=== PATIENT | female | born 1985 | race Caucasian/White ===

== ENCOUNTER 2017-09-18 09:04 | Emergency (ER) | payer MEDICAID ==
[2017-09-18] MEDS: ACETAMINOPHEN 500 MG TAB PO (09:29)
== END 2017-09-18 09:42 | disposition home or self-care (01) ==
LOC: FTE 09:04
DX: M54.5 Low back pain (principal); J45.909 Unspecified asthma, uncomplicated
CPT/HCPCS: 99283; Z7502

== ENCOUNTER 2018-04-30 21:06 | Inpatient (IN) | payer MEDICAID ==
[2018-04-30] MEDS ORDERED: LACTATED RINGER'S 1,000 ML IV (23:24)
[2018-04-30] MEDS ORDERED: OXYTOCIN 30 UNITS/LR 500 ML IV ×2 (23:30)
[2018-04-30] MEDS ORDERED: BUTORPHANOL 2 MG INJ IV (23:30)
[2018-04-30] MEDS ORDERED: CARBOPROST 250 MCG INJ IM (23:30)
[2018-04-30] MEDS ORDERED: IBUPROFEN 600 MG TAB PO (23:30)
[2018-04-30] MEDS ORDERED: MISOPROSTOL 200 MCG TAB PR (23:30)
[2018-04-30] MEDS ORDERED: LIDOCAINE 1% (MPF) 30 ML INJ INJ (23:30)
[2018-04-30] MEDS ORDERED: METHYLERGONOVINE 0.2 MG INJ IM (23:30)
[2018-05-01] MEDS ORDERED: MAGNESIUM SULFATE 20 GM/500 ML 500 ML IV (01:38)
[2018-05-01] MEDS ORDERED: BETAMET NA PHOS/AC(6 MG/ML) 2 ML INJ SYG IM (02:00)
[2018-05-01] MEDS ORDERED: MAGNESIUM SULFATE 4 GM/100 ML 100 ML IV (02:00)
[2018-05-01] MEDS: AMPICILLIN 2 GM/NS (PMX) 100 ML IV (02:12)
[2018-05-01] MEDS: LACTATED RINGER'S 1,000 ML IV ×3 (02:20→10:59)
[2018-05-01 02:45] LABS: ADD MAN DIFF? NO
[2018-05-01 03:00] LABS: WHITE BLOOD COUNT 11.2 10^3/ul (4.8-10.8)
[2018-05-01 03:00] LABS: BASOPHILS % 0.2 % (0.0-2.0); EOSINOPHILS # 0.2 10^3/ul (0.0-0.5); EOSINOPHILS % 1.3 % (0.0-7.0); HEMATOCRIT 31.8 % (37.0-47.0); HEMOGLOBIN 10.4 g/dl (12.0-16.0); LYMPHOCYTES # 2.4 10^3/ul (0.8-2.9); LYMPHOCYTES % 21.2 % (15.0-51.0); MEAN CORPUSCULAR HEMOGLOBIN 27.3 pg (29.0-33.0); MEAN CORPUSCULAR HGB CONC 32.7 g/dl (32.0-37.0); MEAN CORPUSCULAR VOLUME 83.5 fl (82.0-101.0); MEAN PLATELET VOLUME 11.8 fl (7.4-10.4); MONOCYTES % 8.7 % (0.0-11.0); NEUTROPHIL # 7.6 10^3/ul (1.6-7.5); NEUTROPHILS % 68.2 % (39.0-77.0); PLATELET COUNT 243 10^3/UL (140-415); RED BLOOD COUNT 3.81 10^6/ul (4.20-5.40); RED CELL DISTRIBUTION WIDTH 16.9 % (11.5-14.5)
[2018-05-01 03:04] LABS: INR 0.88; PT RATIO 0.9
[2018-05-01 03:05] LABS: PARTIAL THROMBOPLASTIN TIME 28.9 Sec (23.0-35.0)
[2018-05-01 03:37] LABS: HEPATITIS B SURFACE ANTIGEN NEGATIVE (NEGATIVE)
[2018-05-01] MEDS: AMPICILLIN 1 GM/NS (PMX) 50 ML IV (06:12)
[2018-05-01 10:25] LABS: AMPHETAMINE/METHAMPHETAMINE Negative (NEGATIVE); BARBITURATES Negative (NEGATIVE); BENZODIAZEPINES Negative (NEGATIVE); CANNABINOIDS Negative (NEGATIVE); COCAINE Negative (NEGATIVE); OPIATES Negative (NEGATIVE)
[2018-05-01] MEDS ORDERED: FENTAnyl 2MCG/ML-ROPIV 0.2% 100 ML (10:26)
[2018-05-01] MEDS ORDERED: NALOXONE (0.4 MG/ML) INJ IV (11:00)
[2018-05-01] MEDS ORDERED: FENTAnyl 2MCG/ML-ROPIV 0.2% 100 ML BAG EPI (11:00)
[2018-05-01] MEDS: OXYTOCIN 30 UNITS/LR 500 ML IV ×3 (11:09→21:28)
[2018-05-01 15:36] LABS: RAPID PLASMA REAGIN NONREACTIVE (NR)
[2018-05-01] MEDS ORDERED: HYDROCODONE/APAP (5/325) TAB PO ×2 (17:00)
[2018-05-01] MEDS ORDERED: ACETAMINOPHEN 325 MG TAB PO (17:00)
[2018-05-01] MEDS ORDERED: OXYCODONE/ASPIRIN (4.88/325) TAB PO ×2 (17:00)
[2018-05-01] MEDS ORDERED: ONDANSETRON 4 MG INJ IV (17:00)
[2018-05-01] MEDS: WITCH HAZEL/GLYCERIN PAD PR (18:02)
[2018-05-01] MEDS: BENZOCAINE 20% 56 ML SPRAY TOP (18:02)
[2018-05-01] MEDS: LANOLIN HPA 1 PKT TOP (18:02)
[2018-05-01] MEDS: IBUPROFEN 600 MG TAB PO ×2 (18:02→23:47)
[2018-05-01] MEDS: SENNA/DOCUSATE NA (8.6MG/50MG) TAB PO (23:47)
[2018-05-02] MEDS: IBUPROFEN 600 MG TAB PO ×4 (05:48→23:41)
[2018-05-02] MEDS: SENNA/DOCUSATE NA (8.6MG/50MG) TAB PO ×2 (08:52→21:02)
[2018-05-02 09:06] LABS: ADD MAN DIFF? NO
[2018-05-02 09:11] LABS: BASOPHILS % 0.3 % (0.0-2.0); EOSINOPHILS # 0.2 10^3/ul (0.0-0.5); EOSINOPHILS % 1.8 % (0.0-7.0); HEMATOCRIT 30.8 % (37.0-47.0); HEMOGLOBIN 9.9 g/dl (12.0-16.0); LYMPHOCYTES # 2.8 10^3/ul (0.8-2.9); LYMPHOCYTES % 23.6 % (15.0-51.0); MEAN CORPUSCULAR HGB CONC 32.1 g/dl (32.0-37.0); MEAN CORPUSCULAR VOLUME 83.9 fl (82.0-101.0); MEAN PLATELET VOLUME 11.6 fl (7.4-10.4); MONOCYTE # 0.8 10^3/ul (0.3-0.9); MONOCYTES % 6.9 % (0.0-11.0); NEUTROPHILS % 66.9 % (39.0-77.0); PLATELET COUNT 218 10^3/UL (140-415); RED BLOOD COUNT 3.67 10^6/ul (4.20-5.40); RED CELL DISTRIBUTION WIDTH 17.4 % (11.5-14.5)
[2018-05-03] MEDS: IBUPROFEN 600 MG TAB PO ×2 (05:35→11:21)
[2018-05-03] MEDS: SENNA/DOCUSATE NA (8.6MG/50MG) TAB PO (08:59)
[2018-05-03] MEDS: MEASLES,MUMPS,RUBELLA VACCINE INJ SC* (09:00)
== END 2018-05-03 12:46 | disposition home or self-care (01) | DRG 807 ==
LOC: OBT 21:06 → L-D 05-01 01:07 → PP1 05-03 02:09 → L-D 21:07 → OBT 05-01 00:30 → L-D 05-01 00:30 → PP1 05-01 16:47 → L-D 21:26
PROVIDERS: Obstetrics & Gynecology
PROC: 10E0XZZ Delivery of Products of Conception, External Approach (ICD-10-PCS; principal; 2018-05-01)
DX: O34.219 Maternal care for unspecified type scar from previous cesarean delivery (principal); Z37.0 Single live birth; Z3A.38 38 weeks gestation of pregnancy
CPT/HCPCS: 36415; 62319; 76815; 80307; 85025; 85610; 85730; 86592; 86850; 86900; 86901; 87340; 90686

== ENCOUNTER 2018-05-07 00:22 | Emergency (ER) | payer MEDICAID ==
[2018-05-07 01:49] LABS: ADD MAN DIFF? NO
[2018-05-07 01:54] LABS: BASOPHILS % 0.1 % (0.0-2.0); EOSINOPHILS # 0.2 10^3/ul (0.0-0.5); EOSINOPHILS % 1.3 % (0.0-7.0); HEMOGLOBIN 10.9 g/dl (12.0-16.0); LYMPHOCYTES # 1.8 10^3/ul (0.8-2.9); LYMPHOCYTES % 13.2 % (15.0-51.0); MEAN CORPUSCULAR HEMOGLOBIN 27.1 pg (29.0-33.0); MEAN CORPUSCULAR HGB CONC 32.1 g/dl (32.0-37.0); MEAN CORPUSCULAR VOLUME 84.6 fl (82.0-101.0); MEAN PLATELET VOLUME 10.3 fl (7.4-10.4); MONOCYTE # 0.9 10^3/ul (0.3-0.9); MONOCYTES % 6.5 % (0.0-11.0); NEUTROPHIL # 10.6 10^3/ul (1.6-7.5); NEUTROPHILS % 78.6 % (39.0-77.0); PLATELET COUNT 338 10^3/UL (140-415); RED BLOOD COUNT 4.02 10^6/ul (4.20-5.40); RED CELL DISTRIBUTION WIDTH 17.1 % (11.5-14.5)
[2018-05-07 01:54] LABS: WHITE BLOOD COUNT 13.4 10^3/ul (4.8-10.8)
[2018-05-07 02:01] LABS: ADD UMIC YES; UR ASCORBIC ACID NEGATIVE (NEGATIVE); UR BACTERIA FEW /HPF (NONE SEEN); UR BILIRUBIN (Dip) NEGATIVE (NEGATIVE); UR BLOOD (Dip) 2+ mg/dL (NEGATIVE); UR CLARITY SLIGHTLY CLOUDY (CLEAR); UR COLOR AMBER (YELLOW); UR GLUCOSE (Dip) NEGATIVE (NEGATIVE); UR KETONES (Dip) NEGATIVE (NEGATIVE); UR LEUKOCYTE ESTERASE (Dip) 2+ Leu/ul (NEGATIVE); UR NITRITE (Dip) POSITIVE (NEGATIVE); UR NONSQUAMOUS EPITHELIAL CELL 2 /HPF (NONE SEEN); UR RBC 29 /HPF (0-5); UR SPECIFIC GRAVITY (Dip) 1.015 (1.003-1.030); UR SQUAMOUS EPITHELIAL CELL FEW /HPF (FEW); UR TOTAL PROTEIN (Dip) 1+ mg/dl (NEGATIVE); UR UROBILINOGEN (Dip) 2+ mg/dL (NEGATIVE); UR WBC > 182 /HPF (0-5)
[2018-05-07 02:14] LABS: ALANINE AMINOTRANSFERASE 47 IU/L (13-69); ALBUMIN 3.8 g/dl (3.3-4.9); ALBUMIN/GLOBULIN RATIO 1.02; ALKALINE PHOSPHATASE 187 IU/L (42-121); ANION GAP 13 (5-13); ASPARTATE AMINO TRANSFERASE 32 IU/L (15-46); BILIRUBIN,INDIRECT 0.2 mg/dl (0-1.1); BILIRUBIN,TOTAL 0.2 mg/dl (0.2-1.3); BLOOD UREA NITROGEN 11 mg/dl (7-20); CALCIUM 8.8 mg/dl (8.4-10.2); CARBON DIOXIDE 23 mmol/L (21-31); CHLORIDE 105 mmol/L (97-110); CREATININE 0.63 mg/dl (0.44-1.00); Estimated GFR > 60 mL/min (>60); GLUCOSE 104 mg/dl (70-220); INR 0.83; POTASSIUM 3.9 mmol/L (3.5-5.1); PROTIME 11.5 Sec (11.9-14.9); PT RATIO 0.9; SODIUM 141 mmol/L (135-144); TOTAL PROTEIN 7.5 g/dl (6.1-8.1)
[2018-05-07 02:15] LABS: PARTIAL THROMBOPLASTIN TIME 28.2 Sec (23.0-35.0)
== END 2018-05-07 03:39 | disposition home or self-care (01) ==
LOC: FTE 00:22
DX: O86.20 Urinary tract infection following delivery, unspecified (principal); J45.909 Unspecified asthma, uncomplicated; O99.53 Diseases of the respiratory system complicating the puerperium; B96.20 Unspecified Escherichia coli [E. coli] as the cause of diseases classified elsewhere; R31.9 Hematuria, unspecified
CPT/HCPCS: 80053; 81001; 85025; 85610; 85730; 87086; 99283

== ENCOUNTER 2018-12-17 06:49 | Observation (INO) | payer MEDICAID ==
[2018-12-17] MEDS: LACTATED RINGER'S 1,000 ML (ENTER RATE) IV (07:00)
[2018-12-17 08:42] LABS: ADD MAN DIFF? NO
[2018-12-17 08:45] LABS: WHITE BLOOD COUNT 10.7 10^3/ul (4.8-10.8)
[2018-12-17 08:45] LABS: BASOPHIL # 0.1 10^3/ul (0.0-0.1); BASOPHILS % 0.5 % (0.0-2.0); EOSINOPHILS # 0.6 10^3/ul (0.0-0.5); EOSINOPHILS % 5.7 % (0.0-7.0); HEMOGLOBIN 11.8 g/dl (12.0-16.0); LYMPHOCYTES # 3.2 10^3/ul (0.8-2.9); LYMPHOCYTES % 30.1 % (15.0-51.0); MEAN CORPUSCULAR HEMOGLOBIN 28.1 pg (29.0-33.0); MEAN CORPUSCULAR HGB CONC 33.7 g/dl (32.0-37.0); MEAN CORPUSCULAR VOLUME 83.3 fl (82.0-101.0); MEAN PLATELET VOLUME 10.2 fl (7.4-10.4); MONOCYTE # 0.8 10^3/ul (0.3-0.9); MONOCYTES % 7.4 % (0.0-11.0); NEUTROPHILS % 56.1 % (39.0-77.0); PLATELET COUNT 303 10^3/UL (140-415); RED CELL DISTRIBUTION WIDTH 13.1 % (11.5-14.5)
[2018-12-17] MEDS ORDERED: ONDANSETRON 4 MG INJ IV (09:00)
[2018-12-17] MEDS ORDERED: ALBUTEROL 0.083% (NEB) 2.5 MG/3 ML AMP HHN (09:00)
[2018-12-17] MEDS ORDERED: HYDROmorphONE 1 MG/5 ML IV SYRINGE IV (09:00)
[2018-12-17] MEDS ORDERED: DIPHENHYDRAMINE 50 MG INJ IV (09:00)
[2018-12-17] MEDS ORDERED: FENTAnyl 50 MCG/ML VIAL IV ×2 (09:00)
[2018-12-17 09:02] LABS: ANION GAP 9 (5-13); BLOOD UREA NITROGEN 13 mg/dl (7-20); CALCIUM 8.7 mg/dl (8.4-10.2); CARBON DIOXIDE 25 mmol/L (21-31); CHLORIDE 106 mmol/L (97-110); Estimated GFR > 60 mL/min (>60); GLUCOSE 99 mg/dl (70-220); POTASSIUM 3.6 mmol/L (3.5-5.1); SODIUM 140 mmol/L (135-144)
[2018-12-17 09:04] LABS: ADD UMIC YES; UR ASCORBIC ACID NEGATIVE (NEGATIVE); UR BACTERIA FEW /HPF (NONE SEEN); UR BILIRUBIN (Dip) NEGATIVE (NEGATIVE); UR BLOOD (Dip) NEGATIVE (NEGATIVE); UR CLARITY SLIGHTLY CLOUDY (CLEAR); UR COLOR YELLOW (YELLOW); UR GLUCOSE (Dip) NEGATIVE (NEGATIVE); UR KETONES (Dip) NEGATIVE (NEGATIVE); UR LEUKOCYTE ESTERASE (Dip) TRACE Leu/ul (NEGATIVE); UR MUCUS FEW /HPF (NONE SEEN); UR NITRITE (Dip) NEGATIVE (NEGATIVE); UR RBC 1 /HPF (0-5); UR SPECIFIC GRAVITY (Dip) 1.026 (1.003-1.030); UR SQUAMOUS EPITHELIAL CELL FEW /HPF (FEW); UR TOTAL PROTEIN (Dip) NEGATIVE (NEGATIVE); UR UROBILINOGEN (Dip) NEGATIVE (NEGATIVE); UR WBC 8 /HPF (0-5)
[2018-12-17 09:08] LABS: INR 0.95; PROTIME 12.8 Sec (11.9-14.9)
[2018-12-17] MEDS ORDERED: GLYCOPYRROLATE 0.4 MG INJ (09:30)
[2018-12-17] MEDS ORDERED: DESFLURANE 15 MIN (09:30)
[2018-12-17] MEDS ORDERED: FENTAnyl 50 MCG/ML VIAL (09:34)
[2018-12-17] MEDS ORDERED: ROPIVACAINE 0.5 % 30 ML VIAL (09:35)
[2018-12-17] MEDS ORDERED: SUGAMMADEX SODIUM 200 MG/2 ML VIAL IV (10:16)
[2018-12-17] MEDS ORDERED: LIDOCAINE 100 MG SYRINGE (10:16)
[2018-12-17] MEDS ORDERED: CEFAZOLIN 1 GM INJ (10:16)
[2018-12-17] MEDS ORDERED: SUCCINYLCHOLINE CHLORIDE 100 MG/5 ML SYG IV (10:16)
[2018-12-17] MEDS ORDERED: PROPOFOL 20 ML (10:16)
[2018-12-17] MEDS ORDERED: ROCURONIUM 50 MG INJ (10:16)
[2018-12-17] MEDS ORDERED: PROVENTIL HFA 6.7GM INHALER (11:05)
[2018-12-17] MEDS ORDERED: DEXAMETHASONE 4 MG/ML 5 ML INJ (11:16)
[2018-12-17] MEDS: HYDROmorphONE 1 MG/5 ML IV SYRINGE IV ×2 (11:29→11:57)
[2018-12-17] MEDS: FENTAnyl 50 MCG/ML VIAL IV (12:04)
[2018-12-17] MEDS: IBUPROFEN 600 MG TAB PO ×3 (12:47→23:22)
[2018-12-17] MEDS: METOCLOPRAMIDE 10 MG INJ IV (12:58)
[2018-12-17] MEDS ORDERED: ONDANSETRON 4 MG INJ (16:05)
[2018-12-18] MEDS: IBUPROFEN 600 MG TAB PO ×3 (06:03→19:12)
== END 2018-12-18 19:50 | disposition home or self-care (01) ==
LOC: SDS 06:49 → REC 12:03 → MS1 18:50
DX: Z30.2 Encounter for sterilization (principal)
CPT/HCPCS: 58600; 80048; 81001; 85025; 85610; 85730; 88302; 99217